=== PATIENT | female | born 1985 | race Hispanic/Latino ===

== ENCOUNTER 2021-12-30 00:10 | Day surgery (SDC) | payer OTHER, SELFPAY ==
[2021-11-21 14:51] VITALS: BMI 65.0
[2021-12-30 07:41] LABS: Glucose Point of Care 112 mg/dl (65-105)
[2021-12-30 07:46] VITALS: BP 159/110; PULSE 100; RESP 16; TEMP 36.6; O2SAT 99
[2021-12-30] MEDS: LACTATED RINGERS 1,000 ML 150 ML IV CONT (07:58)
--- NOTE | 2021-12-30 07:59 | SUR.PREOP ---
Patient's BP pre operative is elevated at 154/110. Patient states she is nervous. No other symptoms. No cardiac history or home BP meds. Informed Dr. Donnelly of reading. No new orders placed at this time.
--- NOTE | 2021-12-30 08:22 | WPDGICN ---
Assessment and Plan Assessment and plan (1) Loose stools: Code(s): R19.5 - Other fecal abnormalities Status: Acute Assessment and Plan: Patient with chronic loose stools etiology unclear. May be related to her diabetes or potentially medications such as metformin. Previous stool studies reported to be normal. Plan is for colonoscopy to assess more thoroughly. Adding fiber supplements may be of some benefit. If this fails to control her loose stools a brief trial of holding metformin may be beneficial as well. (2) Diabetes mellitus: Code(s): E11.9 - Type 2 diabetes mellitus without complications Status: Acute Assessment and Plan: Diabetes is known to contribute to diarrhea. As his certain medications such as metformin. This is a consideration for etiology of her loose stools. (3) Obese: Code(s): E66.9 - Obesity, unspecified Status: Acute Assessment and Plan: Weight loss encouraged with calorie restriction increase activity. GI Consult Note Consult date/time: 12/30/21 08:22 HPI: Selena Coyle is a 36 year old female Presents for screening colonoscopy. Patient reports having had diarrhea for 4 years. She reports frequent loose stools. She denies any blood in her stools. She reports significant urgency along with bowel habits. Patient reports that stool studies were done in primary care office found to be unremarkable. She recently has been treated for diabetes mellitus. Medications include metformin. Family history is noncontributory. Patient presents today for colonoscopy because of ongoing diarrhea. She has had no specific treatment directed towards control of her stool loose stools. Review of Systems Review of Systems: All systems reviewed & are unremarkable except as noted in HPI and below PMFSH Past Medical History Medical History (Updated 12/08/21 @ 14:37 by Zachary Rush DO) Anxiety Diabetes mellitus Hypertension Loose stools Obese Family History Family History (Updated 11/20/21 @ 13:05 by Sandra Avitia MA) Father Diabetes mellitus Mother Diabetes mellitus Social History Social History (Updated 11/20/21 @ 13:06 by Sandra Avitia MA) Smoking status: Never smoker Alcohol intake: never Substance use: never Living arrangements: with family Gender identity (if verbalized by the patient): Female Meds Home Medications and Allergies Home Medications Medication Instructions Recorded Confirmed Type buspirone 10 mg tablet 10 mg PO TID 11/20/21 12/30/21 History escitalopram oxalate 20 mg tablet 20 mg PO DAILY 11/20/21 12/30/21 History hydroxyzine HCl 25 mg tablet 25 mg PO TID 11/20/21 12/30/21 History metformin 500 mg tablet 500 mg PO BID 11/20/21 12/30/21 History Allergies Allergy/AdvReac Type Severity Reaction Status Date / Time No Known Allergies Allergy Verified 12/30/21 07:42 Vital Signs Vital Signs - 24 hr 12/30/21 07:46 Temperature 97.8 F Pulse Rate 100 Respiratory Rate 16 Blood Pressure 159/110 H Pulse Oximetry 99 Exam Narrative: Physical exam reveals patient to be alert. Vital signs stable. HEENT exam is unremarkable. Patient is anicteric. Lungs are clear to auscultation and percussion. Heart is without murmur or extra sounds. Abdomen is obese. Bowel sounds are present soft nontender with no organomegaly. Digital external rectal exam is normal.
--- NOTE | 2021-12-30 08:47 | WPDANESEPPF ---
Anes - Initial Pre Proc Eval Procedure: Operation Date: 12/30/21 08:30 Proposed Procedures p Colonoscopy - Remigio Allen MD Date/Time: 12/30/21 08:47 Surgeon: Remigio Allen MD Pre Op Diagnosis: Abdominal pain, loose stools Patient Data Age: 36 Gender: F Height: 1.68 m Weight: 167 kg Last Vital Signs Temp 97.8 F 12/30/21 07:46 Pulse 100 12/30/21 07:46 Resp 16 12/30/21 07:46 BP 159/110 H 12/30/21 07:46 Pulse Ox 99 12/30/21 07:46 Allergies Allergy/AdvReac Type Severity Reaction Status Date / Time No Known Allergies Allergy Verified 12/30/21 07:42 Home Medications Medication Instructions Recorded Confirmed Type buspirone 10 mg tablet 10 mg PO TID 11/20/21 12/30/21 History escitalopram oxalate 20 mg tablet 20 mg PO DAILY 11/20/21 12/30/21 History hydroxyzine HCl 25 mg tablet 25 mg PO TID 11/20/21 12/30/21 History metformin 500 mg tablet 500 mg PO BID 11/20/21 12/30/21 History Laboratory Tests 12/30/21 07:36 POC Capillary Glucose 112 mg/dl H mg/dl (65-105) Patient hx anesthesia problems: none Family hx anesthesia problems: none Results Review: All pre-operative results and documents have been reviewed as part of the pre-operative evaluation. [facility] [place] Past Medical History Medical History (Updated 12/08/21 @ 14:37 by Zachary Rush DO) Anxiety Diabetes mellitus Hypertension Loose stools Obese Family History Family History (Updated 11/20/21 @ 13:05 by Sandra Avitia MA) Father Diabetes mellitus Mother Diabetes mellitus Social History Social History (Updated 11/20/21 @ 13:06 by Sandra Avitia MA) Smoking status: Never smoker Alcohol intake: never Substance use: never Living arrangements: with family Gender identity (if verbalized by the patient): Female Anes - Eval Final PreProcedure Day of Procedure 12/30/21 08:47 Patient weight: super morbidly obese Heart: regular rate and rhythm Lungs: clear to auscultation Airway: Mallampati scale class III Neurological: alert and oriented Last oral intake: >/= 8 hours ASA classification: IV Emergent: no Anesthetic plan: proceed Anesthesia type and monitoring: general GIVS and standard monitoring Results Review: All pre-operative results and documents have been reviewed as part of the pre-operative evaluation. Informed Consent: The patient's anesthetic plan and its attendant risks and benefits were discussed with the patient/family/POA. Questions were solicited and answers provided to the satisfaction of the patient/family/POA.
[2021-12-30 09:24] LABS: Beta HCG Quantitative < 2.39 mIU/ML
[2021-12-30 10:00] VITALS: BP 127/62; PULSE 89; RESP 22; O2SAT 99
[2021-12-30 10:10] VITALS: BP 129/74; PULSE 98; RESP 23; O2SAT 100
[2021-12-30 10:20] VITALS: BP 148/84; PULSE 89; RESP 18; O2SAT 99
== END 2021-12-30 10:37 | disposition home or self-care (01) ==
PROVIDERS: Anesthesiology; PCP Family Medicine; Visit Provider Internal Medicine Gastroenterology
PROC: 0DJD8ZZ Inspection of Lower Intestinal Tract, Via Natural or Artificial Opening Endoscopic (ICD-10-PCS; CPT 45378; principal; 2021-12-30 08:30)
DX: K59.1 Functional diarrhea (principal); K63.5 Polyp of colon; K52.89 Other specified noninfective gastroenteritis and colitis; R19.5 Other fecal abnormalities; R10.84 Generalized abdominal pain; K64.8 Other hemorrhoids; K57.30 Diverticulosis of large intestine without perforation or abscess without bleeding; R10.9 Unspecified abdominal pain; Z79.84 Long term (current) use of oral hypoglycemic drugs; F41.9 Anxiety disorder, unspecified; I10 Essential (primary) hypertension; E66.01 Morbid (severe) obesity due to excess calories; Z68.43 Body mass index [BMI] 50.0-59.9, adult
CPT/HCPCS: 45385; 45380; 36415; 82948; 84702; 88305; J2704; J7120